=== PATIENT | male | born 1990 | race Caucasian/White ===

== ENCOUNTER 2020-06-10 10:49 | Emergency (ER) | payer SELFPAY ==
[2020-06-10 10:59] VITALS: BP 114/71; PULSE 88; RESP 16; TEMP 36.4; O2SAT 99
--- NOTE | 2020-06-10 11:16 | ED.BACK ---
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 He complains of 2-week history of left low back pain that is mild, worse with motion, better at rest, radiates to neck and posteriorly to the knee . Symptoms began then with heavy lifting; unrelieved with OTC pain med like Motrin nor chiripractor visit. No numbness/weakness, direct injury-he has prior pain in the similar area years ago, with noncontributory plain films. Related Data Allergies Allergy/AdvReac Type Severity Reaction Status Date / Time poison mann extract Allergy Unknown Rash Verified 06/10/20 11:09 poison oak extract Allergy Unknown rash Verified 06/10/20 11:09 poison sumac extract Allergy Unknown rash Verified 06/10/20 11:09 Review of Systems Review of Systems: Narrative: General/Constitutional: No weight loss,fever Eyes: N0: Redness,discharge Ears/Nose/Throat: No: Epistaxis,ear discharge Respiratory: Denies: Hemoptysis Gastrointestinal: No Vomiting, Bleeding-rectal Skin: No Lumps, eruption Neurologic: No Focal Weakness,Sz Hematologic: Denies: Petechiae/Purpura Psychiatric: No: Suicida ideationl All Other Systems: Reviewed and Negative PMFSH Comments At time of signature, agree with nursing past medical, surgical, social and family history. There is no relevant family history pertinent to the presenting complaint Exam Narrative: Exam Narrative: General Appearance: Well appearing, Well nourished/overweight, Conjunctiva clear Ears: External ear normal Nose: Normal nose Mouth/Throat: Normal appearing, Normal lips Neck: Supple Respiratory: Airway patent Abdomen: Soft Musculoskeletal: Normal strength (no footdrop, 5/5 : EH L-FHL, gastroc-AT, no saddle weakness) Spine/Back: Paraspinal muscle tender (with mild decreased range of motion; left posterior superior iliac crest) Skin: Normal color Neurological: A&O x3, CN II-XII intact, Normal reflexes (symmetric, 2+ KJ, AJ) Psychiatric: Normal mood Course Vital Signs Vital signs: Vital Signs Temperature 97.6 F 06/10/20 10:59 Pulse Rate 88 05/03/21 10:59 Respiratory Rate 16 06/10/20 10:59 Blood Pressure 114/71 06/10/20 10:59 Pulse Oximetry 99 06/10/20 10:59 Temperature 97.6 F 06/10/20 10:59 Pulse Rate 88 06/10/20 10:59 Respiratory Rate 16 06/10/20 10:59 Blood Pressure 114/71 06/10/20 10:59 Pulse Oximetry 99 06/10/20 10:59 Discharge Plan Discharge Clinical Impression: Strain of lumbar region Qualifiers: Encounter type: initial encounter Qualified Code(s): S39.012A - Strain of muscle, fascia and tendon of lower back, initial encounter Patient Disposition: Home, Self-Care Condition: Stable Instructions: Lower Back Exercises (ED) Prescriptions: New acetaminophen-codeine 300-30 mg tablet 1 - 2 tablet PO HS PRN (Reason: pain) Qty: 10 RF: 0 prednisone 20 mg tablet 60 mg PO DAILY Qty: 15 RF: 0 tramadol 50 mg tablet 50 - 75 mg PO TID PRN (Reason: pain) Qty: 15 RF: 1 Follow-up/Referrals: UNKNOWN,DOCTOR [Primary Care Provider] - Stand Alone Forms: Work/School Release IP
== END 2020-06-10 11:31 | disposition home or self-care (01) ==
PROVIDERS: Emergency Provider Emergency Medicine
DX: S39.012A Strain of muscle, fascia and tendon of lower back, initial encounter (principal); X50.0XXA Overexertion from strenuous movement or load, initial encounter; Y99.0 Civilian activity done for income or pay
CPT/HCPCS: 99213; G0463

== ENCOUNTER 2022-05-12 16:57 | Emergency (ER) | payer SELFPAY ==
[2022-05-12 17:05] VITALS: BP 133/84; PULSE 78; RESP 18; TEMP 36.7; O2SAT 98
--- NOTE | 2022-05-12 17:12 | PC.NURSE ---
Pt after triage pt states he didn't want to wait and would head over to [facility] to be seen. Pt A&Ox4, resp even non-labored. Pt left at this time, ambulatory with son out of ED.
== END 2022-05-12 17:12 | disposition left against medical advice (07) ==
DX: R22.0 Localized swelling, mass and lump, head (principal)
CPT/HCPCS: 99199

== ENCOUNTER 2022-05-13 21:38 | Emergency (ER) | payer SELFPAY ==
[2022-05-13] VITALS (13 sets, daily range): BP systolic 124–149; BP diastolic 70–90; PULSE 74–105; RESP 16–23; TEMP 37; O2SAT 98–100
--- NOTE | 2022-05-13 22:52 | ED.HA ---
HPI - Headache General Chief Complaint: Headache <KIRSTIE Stewart Last Filed: 05/14/22 19:02> Stated Complaint: ear pain <KIRSTIE Stewart Last Filed: 05/14/22 19:02> Time Seen by Provider: 05/13/22 22:24 <KIRSTIE Stewart Last Filed: 05/14/22 19:02> History of Present Illness HPI Narrative: Patient is a 32-year-old male here via EMS for evaluation of left-sided headache over the past day and a half. Patient states that his headache began while he was on a flight. He describes the pain as a pressure sensation in his left ear and is also present around his left hinduism. He was seen at outside hospital emergency department yesterday and had head imaging that was reportedly reassuring. He states that his headache improved with migraine cocktail but it returned today. States I can't get my ears to pop and equalize . He denies any visual changes, fevers or chills, nausea or vomiting, neck stiffness, trauma to head, confusion or weakness. <KIRSTIE Stewart Last Filed: 05/14/22 19:02> Related Data Allergies/Adverse Reactions: Allergies Allergy/AdvReac Type Severity Reaction Status Date / Time poison mann extract Allergy Unknown Rash Verified 05/13/22 22:28 poison oak extract Allergy Unknown rash Verified 05/13/22 22:28 poison sumac extract Allergy Unknown rash Verified 05/13/22 22:28 <KIRSTIE Stewart Last Filed: 05/14/22 19:02> Review of Systems Review of Systems: Gen.: Denies fevers or chills Eyes: Denies eye pain or visual change ENT: Denies congestion Respiratory: Denies shortness of breath or cough CV: Denies chest pain or palpitations GI: Denies abdominal pain nausea, emesis or diarrhea denies burning, urgency, frequency or hematuria Musculoskeletal: Denies back pain or muscle pain Neuro: Reports headache Skin: Denies rash Except as documented, all other systems reviewed and negative <KIRSTIE Stewart Last Filed: 05/14/22 19:02> Exam Narrative: APPEARANCE: Well appearing, no pain in distress, well-nourished. Head: Normocephalic and atraumatic. EYES: PERRLA/EOMI, conjunctivae clear NOSE: No nasal drainage EARS: TMs clear. No mastoid tenderness. External ear normal in appearance THROAT: Oropharynx is clear. Mucous membranes are moist. NECK: Supple. No adenopathy, no masses. RESPIRATORY: Airway patent, respirations nonlabored. Clear to auscultation bilaterally, no rales, rhonchi, wheezing. CARDIOVASCULAR: Regular rate and rhythm without murmurs, rubs, or gallops. ABDOMINAL: Normoactive bowel sounds. Soft, nontender, nondistended. No rebound tenderness or guarding. MUSCULOSKELETAL: Extremities are warm and well-perfused. Moves all extremities well. No edema. NEURO: Normal speech. No focal neurologic deficits. SKIN: Skin is warm and dry. No rashes. PSYCHIATRIC: Normal affect/mood. <Rissa Gloria PA-C - Last Filed: 05/14/22 19:02> Course FABRICATION MIG WELDER/PA Physician Supervision This is a was performed by both a physician and an APC. I performed all aspects of the MDM as documented w/ the following additions: 32-year-old presenting with headache and ear pain. Patient was given a migraine cocktail which improved all of his symptoms. He was discharged. All questions answered. Patient in agreement w/ disposition. <Juliano Meek MD - Last Filed: 05/14/22 22:11> Vital Signs Vital signs: Vital Signs Temperature 98.6 F 05/13/22 21:42 Pulse Rate 100 05/13/22 21:42 Respiratory Rate 18 05/13/22 21:42 Blood Pressure 135/87 05/13/22 21:42 Pulse Oximetry 100 05/13/22 21:42 Oxygen Delivery Room Air 05/13/22 21:42 Temperature 98.8 F 05/14/22 01:59 Pulse Rate 73 05/14/22 01:30 Respiratory Rate 15 05/14/22 01:30 Blood Pressure 124/70 05/13/22 23:46 Pulse Oximetry 96 05/14/22 01:30 Oxygen Delivery Room Air 05/13/22 21:42 <Rissa Gloria PA-C - Last Filed: 04
[2022-05-13] MEDS: SODIUM CHLORIDE 0.9% IV 1,000 ML 999 ML IV CONT (23:18)
--- NOTE | 2022-05-13 23:23 | PC.NURSE ---
Report given to ALEA Estrada at this time.
[2022-05-13] MEDS: diphenhydrAMINE HCl INJ 50 MG/ML VIAL 25 MG IV PUSH (23:27)
[2022-05-13] MEDS: PROCHLORPERAZINE EDISYLATE 10 MG/2 ML VIAL IV PUSH (23:30)
[2022-05-14] VITALS (7 sets, daily range): PULSE 70–90; RESP 12–18; TEMP 37.1; O2SAT 94–99
[2022-05-14] MEDS: KETOROLAC 15 MG/ML VIAL (*BKC) IV PUSH (00:42)
== END 2022-05-14 01:59 | disposition home or self-care (01) ==
PROVIDERS: Emergency Provider Physician Assistant
DX: G43.909 Migraine, unspecified, not intractable, without status migrainosus (principal); H93.8X2 Other specified disorders of left ear
CPT/HCPCS: 96374; 96375; 99284; J0780; J1100; J1200; J1885; J7030

== ENCOUNTER 2022-05-14 22:53 | Inpatient (IN) | payer SELFPAY ==
--- NOTE | ~2022-05-14 | CT_ITS ---
EXAMINATION: CT facial bones w con DATE: 05/15/2022 04:03 INDICATION: Mastoiditis TECHNIQUE: Computed tomography (CT) of the facial bones and maxillofacial region was performed with 1 00 mL Omnipaque-350 intravenous contrast. Coronal reconstructions were obtained. Automated exposure c ontrol and iterative reconstruction technique were employed. The dose-length product was 615.82 mGy-c m. COMPARISON: None. FINDINGS: There are bilateral mastoid effusions with small amount of fluid extending in the dependent aspect of the bilateral middle ear cavities, left greater than right. No evident osseous dehiscence. Mild muco petar thickening in the right maxillary sinus and right ostiomeatal unit. Remainder of the paranasal si nuses are clear. Changes of bilateral intraocular lens replacement. Orbits are otherwise unremarkable . The maxillofacial soft tissues are unremarkable. Bilateral parotid and submandibular glands are nor mal. No pathologically enlarged lymphadenopathy. Visualized portion of the inferior brain are unremar kable. No abnormally enhancing lesions identified. Tiny nonhemodynamically significant postoperative atherosclerotic plaque along the left internal carotid artery. The visualized cervical vasculature an d cerebral sinuses are otherwise unremarkable. IMPRESSION: 1. Bilateral otomastoiditis effusions without dehiscence. Reviewed, dictated and finalized at location A.
[2022-05-14 22:59] VITALS: BP 118/94; PULSE 105; RESP 20; TEMP 36.4; O2SAT 100
--- NOTE | 2022-05-14 23:29 | PC.NURSE ---
Ice pack and warm blanket given to pt
[2022-05-15] VITALS (15 sets, daily range): BP systolic 129–152; BP diastolic 67–86; PULSE 78–91; RESP 12–18; TEMP 36.3–37.1; O2SAT 94–98; BMI 35.6
[2022-05-15] MEDS: ACETAMINOPHEN 500 MG TABLET 1000 MG PO (00:29)
--- NOTE | 2022-05-15 01:53 | ED.GENADULT ---
HPI - General Adult General Chief complaint: Headache <KIRSTIE Wilkins Last Filed: 05/15/22 03:18> Stated complaint: ear pressure, jaw pain, headache <Sima Willams PA-C - Last Filed: 05/15/22 03:18> Time Seen by Provider: 05/15/22 01:36 <Sima Willams PA-C - Last Filed: 05/15/22 03:18> History of Present Illness HPI narrative: 32-year-old male reports for evaluation of a headache and ear pain for 4 days. Patient states 4 days ago he was on a flight when he developed the headache and ear pain while the flight was descending. States the headache starts at his ears and extends to his temples and into his jaw. Patient reporting photophobia and phonophobia. Reports he was evaluated at [facility] ED 3 days ago, had a head CT that he is reporting was normal, and was treated with a headache cocktail with relief. Pt was seen again at this ED yesterday, was treated with a headache cocktail and reported relief again. States his symptoms came back this morning. He reports taking prednisone, Tylenol and Benadryl at home w/o relief. Denies sore throat, chest pain, nausea, abdominal pain, vomiting, diarrhea, neck pain, fever. <KIRSTIE Wilkins Last Filed: 05/15/22 03:18> Related Data Allergies/adverse reactions: Allergies Allergy/AdvReac Type Severity Reaction Status Date / Time poison mann extract Allergy Unknown Rash Verified 05/13/22 22:28 poison oak extract Allergy Unknown rash Verified 05/13/22 22:28 poison sumac extract Allergy Unknown rash Verified 05/13/22 22:28 <Sima Willams PA-C - Last Filed: 05/15/22 03:18> Review of Systems Review of Systems: CONSTITUTIONAL: Denies fever, chills EYES: Denies visual changes, redness, or discharge. ENT: Denies rhinorrhea, congestion, sore throat, or otalgia. CARDIOVASCULAR: Denies chest pain, palpitations, or edema. RESPIRATORY: Denies cough or dyspnea. GASTROINTESTINAL: Denies abdominal pain, nausea, vomiting, or diarrhea. GENITOURINARY: Denies dysuria or hematuria. SKIN: Denies rash or itching. MUSCULOSKELETAL: Denies back pain, joint pain, or myalgia. NEUROLOGIC: See HPI PSYCHIATRIC: Denies anxiety or depression. <Sima Willams PA-C - Last Filed: 05/15/22 03:18> Exam Narrative: GENERAL: Well-appearing, well-nourished, and in no acute distress. HEAD: Normocephalic, atraumatic. EYES: PERRLA and EOMI. ENT: Nares clear, no rhinorrhea or epistaxis. Mucous membranes moist. Oropharynx without tonsillar hypertrophy exudate or other lesions. Bilateral TMs erythematous and bulging. Tenderness over bilateral mastoid processes. NECK: Supple. No adenopathy or masses. Negative Kernig's and Brudzinski CHEST: Clear to auscultation. No respiratory distress. No wheezes rales or rhonchi HEART: Regular rate and rhythm. No murmur heard. Normal peripheral pulses. ABDOMEN: Soft, nontender, nondistended, normal active bowel sounds. EXTREMITIES: Normal range of motion. No edema. SKIN: Warm, dry, no rash. NEURO: No focal deficits. Alert and oriented x3. Cranial nerves II through XII intact. Strength 5 out of 5 in BUE and BLE. Sensation intact throughout. PSYCH: Normal mood and affect. <Sima Willams PA-C - Last Filed: 05/15/22 03:18> Course SYNTHETIC GEM PRESS OPERATOR/PA Physician Supervision This is a was performed by both a physician and an APC. I performed all aspects of the MDM as documented w/ the following additions: 32-year-old male found him back to the ED with headache and ear pain. Physical exam showed acute otitis media bilaterally. He also has tenderness to palpation over the mastoids. CT was ordered which showed item mastoiditis. Patient was started on dip days ago and admitted the hospital. Care was coordinated between ENT and the hospitalist. All questions answered. Patient in agreement w/ disposition. <Juliano Meek MD - Last Filed: 05/15/22 08:07> Vital Signs Vital signs: Vital Signs Temperature 97.6 F 05/14/22 22:59 Pulse Rate
[2022-05-15] MEDS: SODIUM CHLORIDE 0.9% IV 1,000 ML 999 ML IV CONT (02:15)
[2022-05-15] MEDS: KETOROLAC 30 MG/ML VIAL (*BKC) IV PUSH (02:16)
[2022-05-15] MEDS: diphenhydrAMINE HCl INJ 50 MG/ML VIAL 25 MG IV PUSH (02:16)
[2022-05-15] MEDS: PROCHLORPERAZINE EDISYLATE 10 MG/2 ML VIAL IV PUSH (02:23)
[2022-05-15 03:57] LABS: Basophils Percent Auto 0.2 % (0.2-1.2); Hematocrit 44.8 % (42.0-52.0); Hemoglobin 15.3 g/dL (14.0-18.0); Immature Granulocyte Absolute 0.13 K/mm3 (0.00-0.031); Immature Granulocyte Percent A 0.5 % (0-0.5); Lymphocytes Percent Auto 9.9 % (18.3-44.2); Mean Corpuscular HGB Conc 34.2 g/dl (32-36); Mean Corpuscular Hemoglobin 33.3 pg (26-34); Mean Corpuscular Volume 97.4 fl (80-100); Mean Platelet Volume 10.6 fl (7.4-10.4); Monocytes Absolute Auto 2.5 K/mm3 (0.1-0.6); Monocytes Percent Auto 10.4 % (2.6-8.5); Neutrophils Absolute Auto 19.1 K/mm3 (1.3-6.7); Platelet Count Result 329 k/mm3 (150-375); Red Cell Distribution Width 11.9 % (11.5-14.5); White Blood Count 24.2 K/mm3 (4.5-10.0)
[2022-05-15 04:07] LABS: Alanine Aminotransferase 22 U/L (6-50); Albumin Level 4.7 g/dL (3.5-5.1); Alkaline Phosphatase 70 U/L (38-126); Anion Gap 12 mmol/L (8-16); Aspartate Amino Transferase 17 U/L (17-59); Bilirubin,Total 0.9 mg/dL (0.2-1.3); Blood Urea Nitrogen 13 mg/dL (9-20); Calcium 9.4 mg/dL (8.4-10.2); Carbon Dioxide 28 mmol/L (22-30); Chloride 102 mmol/L (98-107); Estimated CRCL calculation 144 ml/min; Estimated Glomerular Filt Rate > 60; Glucose 104 mg/dL (65-110); Potassium 3.4 mmol/L (3.4-5.0); Sodium 142 mmol/L (137-145)
[2022-05-15] MEDS: AMOXICILLIN/CLAVULANATE K 875-125 MG TAB 1 TABLET PO (06:04)
[2022-05-15] MEDS: SODIUM CHLORIDE 0.9% IV 2,000 ML 999 ML IV CONT (07:52)
--- NOTE | 2022-05-15 08:02 | WPDCN ---
Assessment and Plan Assessment and plan (1) Sore throat: Code(s): J02.9 - Acute pharyngitis, unspecified Status: Acute Assessment and Plan: patient okay for diet no surgery for the time being. Recommend daily CBC/ white count IV antibiotics while in-house. IV Unasyn or clindamycin should suffice IV Zosyn is an option as well should the patient have worsening ear infections. Three doses of Decadron then hold steroids. Should the patient worsen in any way could consider ear tubes in the OR early next week. The white count trans normal would recommend discharge on 10 days of oral antibiotics. Please have the patient see me in the office following discharge. (2) Ear pain: Code(s): H92.09 - Otalgia, unspecified ear Status: Acute HPI Data of Consult Date/Time: 05/15/22 08:02 Primary Care Provider: UNKNOWN,DOCTOR Consult Narrative Reason for consult: Sore throat ear infection Narrative: Yandel Ca is a 32 year old male 3 days of ear pain throat pain. ENT consult secondary to CT scan showing possible mastoiditis. CT bursa reviewed red does not have classic clinical mastoiditis nor radiographic findings of mastoiditis sorry otolaryngologic findings of mastoiditis air cells are intact the entire mastoids are not full. Middle ears are actually aerated on the CT scan. Has radiographic mastoiditis. Review of Systems Review of Systems: All systems reviewed & are unremarkable except as noted in HPI and below Meds Home Medications and Allergies Home Medications Medication Instructions Recorded Confirmed Type acetaminophen 300 mg-codeine 30 mg 1 - 2 tablet PO HS PRN pain #10 06/10/20 Rx tablet tabs prednisone 20 mg tablet 60 mg PO DAILY #15 tabs 06/10/20 Rx tramadol 50 mg tablet 50 - 75 mg PO TID PRN pain #15 tabs 06/10/20 Rx prednisone 20 mg tablet 20 mg PO DAILY #5 tabs 05/14/22 Rx Allergies Allergy/AdvReac Type Severity Reaction Status Date / Time poison mann extract Allergy Unknown Rash Verified 05/13/22 22:28 poison oak extract Allergy Unknown rash Verified 05/13/22 22:28 poison sumac extract Allergy Unknown rash Verified 05/13/22 22:28 Vital Signs Vital Signs - 24 hr 05/14/22 22:59 Temperature 36.4 C Pulse Rate 105 H Respiratory Rate 20 Blood Pressure 118/94 H Pulse Oximetry 100 Oxygen Delivery Room Air Exam Narrative: Mild pain to palpation of or holes and postauricular region large tonsils scant exudate of material on them remainder of exam is Results Labs 05/15/22 02:12 05/15/22 02:12 Labs: Short CBC 05/15/22 Range/Units 02:12 WBC 24.2 H (4.5-10.0) K/mm3 Hgb 15.3 (14.0-18.0) g/dL Hct 44.8 (42.0-52.0) % Plt Count 329 (150-375) k/mm3 BMP 05/15/22 02:12 Sodium 142 Potassium 3.4 Chloride 102 Carbon Dioxide 28 BUN 13 Creatinine 0.90 Glucose 104 Calcium 9.4 Liver Function 05/15/22 Range/Units 02:12 Total Bilirubin 0.9 (0.2-1.3) mg/dL AST 17 (17-59) U/L ALT 22 (6-50) U/L Alkaline Phosphatase 70 (38-126) U/L Albumin 4.7 (3.5-5.1) g/dL
[2022-05-15] MEDS: PIPERACILLN/TAZ 3.375GM/NS50ML 3.375 GM/50 ML BAG IVPB ×4 (08:07→23:48)
[2022-05-15] MEDS: ONDANSETRON INJ 4 MG/2 ML VIAL IV PUSH (10:22)
[2022-05-15] MEDS: HYDROmorphone HCL INJ (*CRX) 1 MG/ML SYR 0.5 MG IV PUSH (10:22)
--- NOTE | 2022-05-15 13:00 | PM.IMHP ---
H&P: HPI History of Present Illness Date/Time: 05/15/22 13:00 Chief Complaint: Headache, left ear and jaw pain. Narrative: This is a 32-year-old male who presented to the emergency department early this morning from home for evaluation of a headache and left ear and jaw pain. Patient provides the following history. Four days ago he was on a flight and he developed a diffuse headache and pain in the ears when the plane began to descend. Since that time he has continued to have intermittent headaches and severe ear pain which radiates into the jaw. He also endorses photophobia and phonophobia. He was evaluated for these complaints in the emergency department at [facility] 3 days ago and he reports having a brain CT that time which was normal. He was given a migraine cocktail of sort with relief and he was discharged home. His symptoms returned he was seen in [place] ED on the evening of May 13 at which time he was treated symptomatically with improvement. Symptoms returned this morning. He denies fever, chills, sweats, sinus congestion, sore throat, neck pain, shortness a breath, cough, nausea, vomiting, and diarrhea. He was afebrile on arrival to the emergency department. CBC was significant for white blood cell count of 24.2; CMP was unremarkable. Facial CT showed bilateral or mastoid effusions without dehiscence. He was given a dose of Unasyn and dexamethasone 10 mg and he has been admitted to the floor for further treatment in the ENT evaluation. Review of Systems Review of Systems: Twelve systems were reviewed and are negative except for as per HPI. [facility] Past Medical History Medical History (Updated 05/18/22 @ 00:40 by Dinorah Pinzon PA-C) No significant medical problems Surgical History Surgical History (Updated 05/18/22 @ 00:40 by Dinorah Pinzon PA-C) No history of previous surgery Family History Family History (Updated 05/18/22 @ 00:40 by Dinorah Pinzon PA-C) Other Family history non-contributory Social History Social History Social History: Surrogate medical decision maker: Sol Ca, mother. Code status: Full code. Smoking status: Never smoker Alcohol intake: never Substance use: never Substance use type: does not use Lack of Transportation: No Lack of Food: Never True Current Housing: I Have Housing Concerned About Future Housing: No Difficulty Paying Gas/Electric Bills: No Difficulty Paying for Meds: No Currently Unemployed: No Education: High School Diploma/GED Difficulty w/ Childcare or Family Care: No Additional living arrangements comments: Lives in [place]. Spiritual care concerns: No Meds Home Medications and Allergies Home Medications Medication Instructions Recorded Confirmed Type acetaminophen 300 mg-codeine 30 mg 1 - 2 tablet PO HS PRN pain #10 06/10/20 05/15/22 Rx tablet tabs prednisone 20 mg tablet 60 mg PO DAILY #15 tabs 06/10/20 05/15/22 Rx tramadol 50 mg tablet 50 - 75 mg PO TID PRN pain #15 tabs 06/10/20 05/15/22 Rx prednisone 20 mg tablet 20 mg PO DAILY #5 tabs 05/14/22 05/15/22 Rx Allergies Allergy/AdvReac Type Severity Reaction Status Date / Time poison mann extract Allergy Unknown Rash Verified 05/13/22 22:28 poison oak extract Allergy Unknown rash Verified 05/13/22 22:28 poison sumac extract Allergy Unknown rash Verified 05/13/22 22:28 Vital Signs Vital Signs - 24 hr 05/14/22 22:59 05/15/22 08:16 05/15/22 08:19 Temperature 97.6 F Pulse Rate 105 H 80 85 Respiratory Rate 20 16 15 Blood Pressure 118/94 H 145/80 H Pulse Oximetry 100 96 98 Oxygen Delivery Room Air 05/15/22 08:30 05/15/22 08:31 05/15/22 08:45 Temperature Pulse Rate 81 82 83 Respiratory Rate 16 18 18 Blood Pressure 137/78 Pulse Oximetry 97 97 95 Oxygen Delivery 05/15/22 08:46 05/15/22 08:47 05/15/22 09:02 Temperature Pulse Rat
--- NOTE | 2022-05-15 13:30 | PC.NURSE ---
Pharmacy called twice regarding pipercillin 3.375 starting at 1130. Med received at 1331--31 minutes after it was due. Order placed at 0940.
[2022-05-15] MEDS: HYDROcodone/acetaminophen (*CRX) 5-325 MG TABLET 1 TAB PO (22:00)
[2022-05-16 05:32] VITALS: BP 126/76; PULSE 67; RESP 14; TEMP 36.4; O2SAT 97
[2022-05-16 06:01] LABS: Hematocrit 41.2 % (42.0-52.0); Hemoglobin 13.9 g/dL (14.0-18.0); Mean Corpuscular HGB Conc 33.7 g/dl (32-36); Mean Corpuscular Hemoglobin 33.1 pg (26-34); Mean Corpuscular Volume 98.1 fl (80-100); Mean Platelet Volume 10.3 fl (7.4-10.4); Platelet Count Result 337 k/mm3 (150-375); Red Cell Distribution Width 11.9 % (11.5-14.5); White Blood Count 23.3 K/mm3 (4.5-10.0)
[2022-05-16 06:23] LABS: Anion Gap 7 mmol/L (8-16); Blood Urea Nitrogen 11 mg/dL (9-20); Calcium 8.8 mg/dL (8.4-10.2); Carbon Dioxide 27 mmol/L (22-30); Chloride 104 mmol/L (98-107); Estimated CRCL calculation 212 ml/min; Estimated Glomerular Filt Rate > 60; Glucose 137 mg/dL (65-110); Magnesium 2.2 mg/dL (1.6-2.3); Potassium 4.2 mmol/L (3.4-5.0); Sodium 138 mmol/L (137-145)
[2022-05-16] MEDS: PIPERACILLN/TAZ 3.375GM/NS50ML 3.375 GM/50 ML BAG IVPB ×3 (06:29→17:09)
[2022-05-16 09:21] LABS: CRP 7.7 mg/dL (<1.0)
[2022-05-16] MEDS: HYDROcodone/acetaminophen (*CRX) 5-325 MG TABLET 1 TAB PO ×2 (11:02→21:03)
--- NOTE | 2022-05-16 11:15 | PM.IMPN ---
Progress Note: A&P Assessment and Plan (1) Mastoiditis: Code(s): H70.90 - Unspecified mastoiditis, unspecified ear Status: Acute Assessment and Plan: presented to the emergency department for evaluation of bilateral ear pain and headache CT of the facial bones shows evidence of otomastoiditis and he has bulging TMs bilaterally continue IV Zosyn ENT consulted thank for your help hold off on the Decadron for now white count still elevated 23.3 continue trend labs (2) Otitis media: Code(s): H66.90 - Otitis media, unspecified, unspecified ear Status: Acute Assessment and Plan: see above Time Spent With Patient Time: 40 minutes Time with patient: Greater than 35 minutes Subjective Date/time seen: 05/16/221114 Interval history: 05/16/221114 Patient is resting in bed comfortably. He still stated that he feels both of his ears are clogged and there is lot of buildup in there. He did state that he was feeling a little better. However he stated this has been the best he has felt over the last couple days. He denies any current chest pain, shortness a breath, nausea, vomiting, diarrhea constipation. His white count is 23.3 today. We will continue to trend. 05/15/22? 13:00 This is a 32-year-old male who presented to the emergency department early this morning from home for evaluation of a headache and left ear and jaw pain. Patient provides the following history. Four days ago he was on a flight and he developed a diffuse headache and pain in the ears when the plane began to descend. Since that time he has continued to have intermittent headaches and severe ear pain which radiates into the jaw.? He also endorses photophobia and phonophobia. He was evaluated for these complaints in the emergency department at [facility] 3 days ago and he reports having a brain CT that time which was normal. He was given a migraine cocktail of sort with relief and he was discharged home. His symptoms returned he was seen in [place] ED on the evening of May 13 at which time he was treated symptomatically with improvement. Symptoms returned this morning. He denies fever, chills, sweats, sinus congestion, sore throat, neck pain, shortness a breath, cough, nausea, vomiting, and diarrhea. He was afebrile on arrival to the emergency department. CBC was significant for white blood cell count of 24.2; CMP was unremarkable. Facial CT showed bilateral or mastoid effusions without dehiscence. He was given a dose of Unasyn and dexamethasone 10 mg and he has been admitted to the floor for further treatment in the ENT evaluation. Review of Systems Review of Systems: All systems reviewed & are unremarkable except as noted in HPI and below Exam Narrative: General: well-nourished, well-appearing 32-year-old male, Laying in bed, comfortable, NARD Neuro: awake, alert and oriented x4, speech clear, no focal neuro deficits noted HEENMT: normocephalic, atraumatic, EOMI, sclerae anicteric, moist oral mucosa Respiratory: Clear to auscultation bilaterally without crackles, rhonchi or wheezes, nonlabored breathing Cardio: regular rate, regular rhythm with S1-S2 Abdomen: nondistended, normoactive bowel sounds, soft, nontender to palpation Extremities: no edema, erythema, or tenderness to palpation, DP pulses 2+ bilaterally Skin: no rashes or lesions, warm and dry Psych: appropriate mood and affect, judgment and insight intact Objective Data Vital Signs Vital Signs: Vital Signs - 24 hr 05/15/22 14:00 05/15/22 21:48 05/16/22 05:32 Temperature 97.3 F L 98.7 F 97.5 F L Pulse Rate 86 78 67 Respiratory Rate 16 16 14 Blood Pressure 129/67 152/76 H 126/76 Pulse Oximetry 97 96 97 Oxygen Delivery 05/16/22 08:00 Temperature Pulse Rate Respiratory Rate Blood Pressure Pulse Oximetry Oxygen Delivery Room Air Intake/Output Intake/Output: Intake & Output
[2022-05-16] MEDS: LORATADINE/PSEUDOEPHEDRINE (*CRX) 10/240 MG TABLET ER 24 HR 1 TAB PO (12:43)
[2022-05-16 14:00] VITALS: BP 132/79; PULSE 95; RESP 16; TEMP 36.6; O2SAT 96
[2022-05-16 16:05] LABS: Strep Group A RT-PCR NOT DETECTED (Negative)
[2022-05-16 21:00] VITALS: PULSE 95; RESP 16; O2SAT 96
[2022-05-16 22:00] VITALS: BP 141/71; PULSE 73; RESP 20; TEMP 36.6; O2SAT 93
[2022-05-17] MEDS: PIPERACILLN/TAZ 3.375GM/NS50ML 3.375 GM/50 ML BAG IVPB ×5 (00:06→23:54)
[2022-05-17 05:42] LABS: Basophils Percent Auto 0.2 % (0.2-1.2); Eosinophils Percent Auto 0.1 % (0-4.4); Hemoglobin 13.5 g/dL (14.0-18.0); Immature Granulocyte Absolute 0.14 K/mm3 (0.00-0.031); Immature Granulocyte Percent A 0.8 % (0-0.5); Lymphocytes Absolute Auto 3.07 K/mm3 (0.9-3.2); Lymphocytes Percent Auto 18.1 % (18.3-44.2); Mean Corpuscular HGB Conc 33.8 g/dl (32-36); Mean Corpuscular Hemoglobin 33.4 pg (26-34); Mean Platelet Volume 9.9 fl (7.4-10.4); Monocytes Absolute Auto 1.3 K/mm3 (0.1-0.6); Monocytes Percent Auto 7.7 % (2.6-8.5); Neutrophils Absolute Auto 12.4 K/mm3 (1.3-6.7); Neutrophils Percent Auto 73.1 % (45.5-73.1); Platelet Count Result 334 k/mm3 (150-375); Red Blood Count 4.04 M/mm3 (4.6-6.20); Red Cell Distribution Width 11.9 % (11.5-14.5)
[2022-05-17 05:53] LABS: Alanine Aminotransferase 42 U/L (6-50); Albumin Level 3.7 g/dL (3.5-5.1); Alkaline Phosphatase 49 U/L (38-126); Anion Gap 7 mmol/L (8-16); Aspartate Amino Transferase 26 U/L (17-59); Bilirubin,Total 0.5 mg/dL (0.2-1.3); Blood Urea Nitrogen 16 mg/dL (9-20); CRP 3.8 mg/dL (<1.0); Calcium 8.8 mg/dL (8.4-10.2); Carbon Dioxide 28 mmol/L (22-30); Chloride 105 mmol/L (98-107); Estimated CRCL calculation 163 ml/min; Estimated Glomerular Filt Rate > 60; Glucose 96 mg/dL (65-110); Magnesium 2.1 mg/dL (1.6-2.3); Potassium 3.9 mmol/L (3.4-5.0); Sodium 140 mmol/L (137-145)
[2022-05-17 06:00] VITALS: BP 108/49; PULSE 95; RESP 20; TEMP 36.6; O2SAT 99
[2022-05-17] MEDS: HYDROcodone/acetaminophen (*CRX) 5-325 MG TABLET 1 TAB PO ×3 (07:17→20:37)
[2022-05-17] MEDS: LORATADINE/PSEUDOEPHEDRINE (*CRX) 10/240 MG TABLET ER 24 HR 1 TAB PO (09:36)
--- NOTE | 2022-05-17 10:00 | PM.IMPN ---
Progress Note: A&P Assessment and Plan (1) Mastoiditis: Code(s): H70.90 - Unspecified mastoiditis, unspecified ear Status: Acute Assessment and Plan: presented to the emergency department for evaluation of bilateral ear pain and headache CT of the facial bones shows evidence of otomastoiditis and he has bulging TMs bilaterally continue IV Zosyn day 2/ ENT consulted thank for your help hold off on the Decadron for now white count trending down, currently at 17.0 continue trend labs (2) Otitis media: Code(s): H66.90 - Otitis media, unspecified, unspecified ear Status: Acute Assessment and Plan: see above Time Spent With Patient Time: 51 minutes Time with patient: Greater than 35 minutes Subjective Date/time seen: 05/17/22 1000 Interval history: 05/17/22 1000 Patient stated that he had a rough night overnight. He stated that his IV infiltrated in the middle the night and since then he has had head pressure, ringing in the ears, headache along with jaw pain. He is also very tired. He denies any chest pain, shortness of breath, weakness or fatigue. He is complaining of some congestion and buildup again. White count is down to 17.0 today. This afternoon, he was complaining of a headache and ringing in the ears. ENT should be in tomorrow will have him reevaluated by ENT. 05/16/22 1115 Patient is resting in bed comfortably. He still stated that he feels both of his ears are clogged and there is lot of buildup in there. He did state that he was feeling a little better. However he stated this has been the best he has felt over the last couple days. He denies any current chest pain, shortness a breath, nausea, vomiting, diarrhea constipation. His white count is 23.3 today. We will continue to trend. 05/15/22? 13:00 This is a 32-year-old male who presented to the emergency department early this morning from home for evaluation of a headache and left ear and jaw pain. Patient provides the following history. Four days ago he was on a flight and he developed a diffuse headache and pain in the ears when the plane began to descend. Since that time he has continued to have intermittent headaches and severe ear pain which radiates into the jaw.? He also endorses photophobia and phonophobia. He was evaluated for these complaints in the emergency department at [facility] 3 days ago and he reports having a brain CT that time which was normal. He was given a migraine cocktail of sort with relief and he was discharged home. His symptoms returned he was seen in [place] ED on the evening of May 13 at which time he was treated symptomatically with improvement. Symptoms returned this morning. He denies fever, chills, sweats, sinus congestion, sore throat, neck pain, shortness a breath, cough, nausea, vomiting, and diarrhea. He was afebrile on arrival to the emergency department. CBC was significant for white blood cell count of 24.2; CMP was unremarkable. Facial CT showed bilateral or mastoid effusions without dehiscence. He was given a dose of Unasyn and dexamethasone 10 mg and he has been admitted to the floor for further treatment in the ENT evaluation. Review of Systems Review of Systems: All systems reviewed & are unremarkable except as noted in HPI and below Exam Narrative: General: well-nourished, ill-appearing 32-year-old male, Laying in bed, uncomfortable, NARD, tired Neuro: awake, alert and oriented x4, speech clear, no focal neuro deficits noted HEENMT: normocephalic, atraumatic, EOMI, sclerae anicteric, moist oral mucosa Respiratory: Clear to auscultation bilaterally without crackles, rhonchi or wheezes, nonlabored breathing Cardio: regular rate, regular rhythm with S1-S2 Abdomen: nondistended, normoactive bowel sounds, soft, nontender to palpation Extremities: no edema, erythema, or tenderness to palpation, DP pulses 2+ bilater
[2022-05-17 14:00] VITALS: BP 128/68; PULSE 65; RESP 16; TEMP 36.2; O2SAT 99
[2022-05-17 20:30] VITALS: PULSE 55; RESP 16; O2SAT 97
[2022-05-17 20:40] VITALS: BP 118/63; PULSE 55; RESP 16; TEMP 36.1; O2SAT 97
[2022-05-18] MEDS: PIPERACILLN/TAZ 3.375GM/NS50ML 3.375 GM/50 ML BAG IVPB ×3 (05:40→18:04)
[2022-05-18 05:41] VITALS: BP 131/71; PULSE 60; RESP 16; TEMP 36.5; O2SAT 97
[2022-05-18] MEDS: HYDROcodone/acetaminophen (*CRX) 5-325 MG TABLET 1 TAB PO ×2 (05:44→20:26)
[2022-05-18 06:47] LABS: Basophils Absolute Auto 0.1 K/mm3 (0.0-0.1); Basophils Percent Auto 0.5 % (0.2-1.2); Eosinophils Absolute Auto 0.1 K/mm3 (0-0.3); Eosinophils Percent Auto 0.7 % (0-4.4); Hematocrit 41.1 % (42.0-52.0); Immature Granulocyte Absolute 0.16 K/mm3 (0.00-0.031); Immature Granulocyte Percent A 1.4 % (0-0.5); Lymphocytes Absolute Auto 3.48 K/mm3 (0.9-3.2); Lymphocytes Percent Auto 29.5 % (18.3-44.2); Mean Corpuscular HGB Conc 34.1 g/dl (32-36); Mean Corpuscular Hemoglobin 32.3 pg (26-34); Mean Corpuscular Volume 94.9 fl (80-100); Mean Platelet Volume 9.5 fl (7.4-10.4); Monocytes Absolute Auto 1.1 K/mm3 (0.1-0.6); Monocytes Percent Auto 9.2 % (2.6-8.5); Neutrophils Absolute Auto 6.9 K/mm3 (1.3-6.7); Neutrophils Percent Auto 58.7 % (45.5-73.1); Platelet Count Result 358 k/mm3 (150-375); Red Blood Count 4.33 M/mm3 (4.6-6.20); Red Cell Distribution Width 11.7 % (11.5-14.5); White Blood Count 11.8 K/mm3 (4.5-10.0)
[2022-05-18 07:05] LABS: Alanine Aminotransferase 75 U/L (6-50); Albumin Level 3.8 g/dL (3.5-5.1); Alkaline Phosphatase 58 U/L (38-126); Anion Gap 8 mmol/L (8-16); Aspartate Amino Transferase 37 U/L (17-59); Bilirubin,Total 0.8 mg/dL (0.2-1.3); Blood Urea Nitrogen 12 mg/dL (9-20); Calcium 8.8 mg/dL (8.4-10.2); Carbon Dioxide 28 mmol/L (22-30); Chloride 101 mmol/L (98-107); Estimated CRCL calculation 184 ml/min; Estimated Glomerular Filt Rate > 60; Glucose 86 mg/dL (65-110); Magnesium 2.2 mg/dL (1.6-2.3); Potassium 3.6 mmol/L (3.4-5.0); Sodium 137 mmol/L (137-145)
[2022-05-18] MEDS: LORATADINE/PSEUDOEPHEDRINE (*CRX) 10/240 MG TABLET ER 24 HR 1 TAB PO (08:58)
--- NOTE | 2022-05-18 09:00 | PM.IMPN ---
Progress Note: A&P Assessment and Plan (1) Mastoiditis: Code(s): H70.90 - Unspecified mastoiditis, unspecified ear Status: Acute Assessment and Plan: presented to the emergency department for evaluation of bilateral ear pain and headache CT of the facial bones shows evidence of otomastoiditis and he has bulging TMs bilaterally continue IV Zosyn day 3/ ENT consulted thank for your help hold off on the Decadron for now white count trending down, currently at 11.8 continue trend labs Consider tube placement Will await further recommendations from ENT Tube placement preformed tomorrow am (2) Otitis media: Code(s): H66.90 - Otitis media, unspecified, unspecified ear Status: Acute Assessment and Plan: see above Time Spent With Patient Time: 48 minutes Time with patient: Greater than 35 minutes Subjective Date/time seen: 05/18/22 09 Interval history: 05/18/22 09 Patient is very sleepy. Patient stated that he does had a rough night again. He stated that the ringing of the ears is worse than yesterday and that he is not able to really hear much out of them. He denies any headache or jaw pain however he stated that he just feels very congested. He denies any chest pain, shortness a breath, nausea, vomiting or diarrhea constipation. White count is better today at 11.8. Spoke with ENT about findings of today. ENT will come in to re-evaluate patient and possibly consider tube placement. 05/17/22 1000 Patient stated that he had a rough night overnight. He stated that his IV infiltrated in the middle the night and since then he has had head pressure, ringing in the ears, headache along with jaw pain. He is also very tired. He denies any chest pain, shortness of breath, weakness or fatigue. He is complaining of some congestion and buildup again. White count is down to 17.0 today. This afternoon, he was complaining of a headache and ringing in the ears. ENT should be in tomorrow will have him reevaluated by ENT. 05/16/22 1115 Patient is resting in bed comfortably. He still stated that he feels both of his ears are clogged and there is lot of buildup in there. He did state that he was feeling a little better. However he stated this has been the best he has felt over the last couple days. He denies any current chest pain, shortness a breath, nausea, vomiting, diarrhea constipation. His white count is 23.3 today. We will continue to trend. 05/15/22? 13:00 This is a 32-year-old male who presented to the emergency department early this morning from home for evaluation of a headache and left ear and jaw pain. Patient provides the following history. Four days ago he was on a flight and he developed a diffuse headache and pain in the ears when the plane began to descend. Since that time he has continued to have intermittent headaches and severe ear pain which radiates into the jaw.? He also endorses photophobia and phonophobia. He was evaluated for these complaints in the emergency department at [facility] 3 days ago and he reports having a brain CT that time which was normal. He was given a migraine cocktail of sort with relief and he was discharged home. His symptoms returned he was seen in [place] ED on the evening of May 13 at which time he was treated symptomatically with improvement. Symptoms returned this morning. He denies fever, chills, sweats, sinus congestion, sore throat, neck pain, shortness a breath, cough, nausea, vomiting, and diarrhea. He was afebrile on arrival to the emergency department. CBC was significant for white blood cell count of 24.2; CMP was unremarkable. Facial CT showed bilateral or mastoid effusions without dehiscence. He was given a dose of Unasyn and dexamethasone 10 mg and he has been admitted to the floor for further treatment in the ENT evaluation. Review of Systems Review of Systems:
[2022-05-18 13:54] VITALS: BP 123/66; PULSE 75; RESP 16; TEMP 36.4; O2SAT 97
--- NOTE | 2022-05-18 14:50 | PM.PNGS ---
Progress Note: A&P Assessment and Plan (1) Otitis media: Code(s): H66.90 - Otitis media, unspecified, unspecified ear Status: Acute Assessment and Plan: Plan operating room bilateral myringotomy tube insertion please make NPO midnight. Risks were discussed including bleeding infection need for further procedures cholesteatoma formation persistent perforation facial nerve paralysis failure to resolve symptoms. Need for tube removal and patch which could being extra procedure. Patient voiced understanding and agreed. This will happen Wednesday. Subjective Subjective Date/Time Seen: 05/18/22 14:50 Interval history: Persistent bilateral ear fullness pain previously had purulence on the left this was several days ago otherwise feeling okay from a general malaise/ illness standpoint. Review of Systems Review of Systems: All systems reviewed & are unremarkable except as noted in HPI and below Exam Narrative: Right side has scant serous effusion left side has bulging purulence. Remainder of exam normal. Objective Data Vital Signs Vital Signs: Vital Signs - 24 hr 05/17/22 20:40 05/17/22 20:30 05/18/22 05:41 Temperature 36.1 C L 36.5 C Pulse Rate 55 L 55 L 60 Respiratory Rate 16 16 16 Blood Pressure 118/63 131/71 Pulse Oximetry 97 97 97 Oxygen Delivery Room Air 05/18/22 08:00 05/18/22 13:54 Temperature 36.4 C Pulse Rate 75 Respiratory Rate 16 Blood Pressure 123/66 Pulse Oximetry 97 Oxygen Delivery Room Air Intake/Output Intake/Output: Intake & Output 05/15/22 05/16/22 05/17/22 05/18/22 23:59 23:59 23:59 23:59 Intake Total 1630 2230 2290 1100 Balance 1630 2230 2290 1100 Meds/Results Medications: Active Medications Generic Name Dose Route Start Last Admin Trade Name Freq PRN Reason Stop Dose Admin Acetaminophen 650 mg 05/15/22 13:42 Acetaminophen 325 Mg Tablet PO Q6H PRN Mild Pain (1-3) or Fever Hydrocodone Bitart/Acetaminophen 1 tab 05/15/22 08:07 05/18/22 05:44 Hydrocodone/Acetaminophen (*Crx) 5-325 Mg Tablet PO 1 tab Q4H PRN Administration Pain Rated 4-6 Hydromorphone HCl 0.5 mg 05/15/22 08:07 05/15/22 10:22 Hydromorphone Hcl Inj (*Crx) 1 Mg/Ml Syr IV PUSH 0.5 mg Q4H PRN Administration Pain Rated 7-10 Piperacillin/Tazobactam/Dextrose 3.375 gm in 50 mls @ 100 mls/hr 05/15/22 13:00 05/18/22 13:23 Zosyn 3.375 Gm/Ns 50 Ml IVPB 100 mls/hr Q6HR SUPA Administration Loratadine/Pseudoephedrine Sulfate 1 tab 05/16/22 11:25 05/18/22 08:58 Loratadine/Pseudoephedrine (*Crx) 10/240 Mg Tablet Er 24 Hr PO 1 tab QAM SUPA Administration Ondansetron HCl 4 mg 05/15/22 08:07 05/15/22 10:22 Ondansetron Inj 4 Mg/2 Ml Vial IV PUSH 4 mg Q4H PRN Administration Nausea Promethazine HCl 12.5 mg 05/15/22 08:07 Promethazine Hcl 25 Mg/Ml Ampul IV PUSH Q6H PRN Nausea Radiology Results: ITS Impressions Face CT 05/15/22 06:10 IMPRESSION: 1. Bilateral otomastoiditis effusions without dehiscence. Labs Labs: Laboratory Results - last 24 hr 05/18/22 05/18/22 06:24 06:24 WBC 11.8 H RBC 4.33 L Hgb 14.0 Hct 41.1 L MCV 94.9 MCH 32.3 MCHC 34.1 RDW 11.7 Plt Count 358 MPV 9.5 Immature Gran % (Auto) 1.4 H Neut % (Auto) 58.7 Lymph % (Auto) 29.5 [place] % (Auto) 9.2 H Eos % (Auto) 0.7 Baso % (Auto) 0.5 Lymph # (Auto) 3.48 H [place] # (Auto) 1.1 H Eos # (Auto) 0.1 Baso # (Auto) 0.1 Abs Immat Gran (auto) 0.16 H Absolute Neuts (auto) 6.9 H Absolute Nucleated RBC 0.0 Nucleated RBC % 0.0 Sodium 137 Potassium 3.6 Chloride 101 Carbon Dioxide 28 Anion Gap 8 BUN 12 Creatinine 0.70 Estim Creat Clear Calc 184 Estimated GFR > 60 Glucose 86 Calcium 8.8 Magnesium 2.2 Total Bilirubin 0.8 AST 37 ALT 75 H Alkaline Phosphatase 58 Total Protein 7.0 Albumin 3.8
--- NOTE | 2022-05-18 15:16 | PM.IMHP ---
H&P: HPI History of Present Illness Date/Time: 05/18/22 15:16 Chief Complaint: Acute otitis media [facility] Past Medical History Medical History (Updated 05/18/22 @ 00:40 by Dinorah Pinzon PA-C) No significant medical problems Surgical History Surgical History (Updated 05/18/22 @ 00:40 by Dinorah Pinzon PA-C) No history of previous surgery Family History Family History (Updated 05/18/22 @ 00:40 by Dinorah Pinzon PA-C) Other Family history non-contributory Social History Social History Social History: Surrogate medical decision maker: Sol Ca, mother. Code status: Full code. Smoking status: Never smoker Alcohol intake: never Substance use: never Substance use type: does not use Lack of Transportation: No Lack of Food: Never True Current Housing: I Have Housing Concerned About Future Housing: No Difficulty Paying Gas/Electric Bills: No Difficulty Paying for Meds: No Currently Unemployed: No Education: High School Diploma/GED Difficulty w/ Childcare or Family Care: No Additional living arrangements comments: Lives in [place]. Spiritual care concerns: No Meds Home Medications and Allergies Home Medications Medication Instructions Recorded Confirmed Type acetaminophen 300 mg-codeine 30 mg 1 - 2 tablet PO HS PRN pain #10 06/10/20 05/15/22 Rx tablet tabs prednisone 20 mg tablet 60 mg PO DAILY #15 tabs 06/10/20 05/15/22 Rx tramadol 50 mg tablet 50 - 75 mg PO TID PRN pain #15 tabs 06/10/20 05/15/22 Rx prednisone 20 mg tablet 20 mg PO DAILY #5 tabs 05/14/22 05/15/22 Rx Allergies Allergy/AdvReac Type Severity Reaction Status Date / Time poison mann extract Allergy Unknown Rash Verified 05/13/22 22:28 poison oak extract Allergy Unknown rash Verified 05/13/22 22:28 poison sumac extract Allergy Unknown rash Verified 05/13/22 22:28 Vital Signs Vital Signs - 24 hr 05/17/22 20:40 05/17/22 20:30 05/18/22 05:41 Temperature 36.1 C L 36.5 C Pulse Rate 55 L 55 L 60 Respiratory Rate 16 16 16 Blood Pressure 118/63 131/71 Pulse Oximetry 97 97 97 Oxygen Delivery Room Air 05/18/22 08:00 05/18/22 13:54 Temperature 36.4 C Pulse Rate 75 Respiratory Rate 16 Blood Pressure 123/66 Pulse Oximetry 97 Oxygen Delivery Room Air Exam Narrative: Fluid right-sided pus left-sided H&P: Results Labs Labs: Short CBC 05/18/22 Range/Units 06:24 WBC 11.8 H (4.5-10.0) K/mm3 Hgb 14.0 (14.0-18.0) g/dL Hct 41.1 L (42.0-52.0) % Plt Count 358 (150-375) k/mm3 BMP 05/18/22 06:24 Sodium 137 Potassium 3.6 Chloride 101 Carbon Dioxide 28 BUN 12 Creatinine 0.70 Glucose 86 Calcium 8.8 Liver Function 05/18/22 Range/Units 06:24 Total Bilirubin 0.8 (0.2-1.3) mg/dL AST 37 (17-59) U/L ALT 75 H (6-50) U/L Alkaline Phosphatase 58 (38-126) U/L Albumin 3.8 (3.5-5.1) g/dL Assessment and Plan Assessment and plan (1) Otitis media: Code(s): H66.90 - Otitis media, unspecified, unspecified ear Status: Acute Assessment and Plan: plan OR bilateral myringotomy tube insertion we used collar buttons. Risks discussed including bleeding infection need for further procedures cholesteatoma persistent perforation facial nerve paralysis failure to resolve symptoms need for follow-up need to remove the tubes and patch 1 day. Patient voiced understanding and agreed. (2) Acute otitis media, bilateral: Code(s): H66.93 - Otitis media, unspecified, bilateral Status: Acute
[2022-05-18 20:00] VITALS: PULSE 75; RESP 16; O2SAT 97
[2022-05-18 22:00] VITALS: BP 155/67; PULSE 67; RESP 16; TEMP 36.6; O2SAT 98
[2022-05-19] VITALS (9 sets, daily range): BP systolic 110–132; BP diastolic 60–77; PULSE 62–78; RESP 10–16; TEMP 36.2–36.9; O2SAT 93–98
[2022-05-19] MEDS: PIPERACILLN/TAZ 3.375GM/NS50ML 3.375 GM/50 ML BAG IVPB ×3 (01:37→12:31)
[2022-05-19] MEDS: LACTATED RINGERS 1,000 ML 30 ML IV CONT (07:10)
--- NOTE | 2022-05-19 07:19 | WPDHPUPDATE1 ---
History and Physical Update Update Date/Time: 05/19/22 07:19 History and Physical has been reviewed, including an updated exam of the patient. There are NO changes in the patient's condition. Risks, benefits, and alternatives have been discussed and questions answered. Patient agrees to proceed with procedure.
--- NOTE | 2022-05-19 07:27 | WPDANESEPPF ---
Anes - Initial Pre Proc Eval Procedure: Operation Date: 05/19/22 08:00 Proposed Procedures p Bilateral Myringotomy,Insertion Of Tubes - Jonas Leon MD Date/Time: 05/19/22 07:27 Surgeon: Ester Jones MD Pre Op Diagnosis: Otomastoiditis Patient Data Age: 32 Gender: M Height: 1.88 m Weight: 121 kg Last Vital Signs Temp 36.7 C 05/19/22 07:10 Pulse 78 05/19/22 07:10 Resp 16 05/19/22 07:10 BP 116/60 05/19/22 07:10 Pulse Ox 95 05/19/22 07:10 O2 Del Method Room Air 05/19/22 07:10 Allergies Allergy/AdvReac Type Severity Reaction Status Date / Time poison mann extract Allergy Unknown Rash Verified 05/13/22 22:28 poison oak extract Allergy Unknown rash Verified 05/13/22 22:28 poison sumac extract Allergy Unknown rash Verified 05/13/22 22:28 Home Medications Medication Instructions Recorded Confirmed Type acetaminophen 300 mg-codeine 30 mg 1 - 2 tablet PO HS PRN pain #10 06/10/20 05/15/22 Rx tablet tabs prednisone 20 mg tablet 60 mg PO DAILY #15 tabs 06/10/20 05/15/22 Rx tramadol 50 mg tablet 50 - 75 mg PO TID PRN pain #15 tabs 06/10/20 05/15/22 Rx prednisone 20 mg tablet 20 mg PO DAILY #5 tabs 05/14/22 05/15/22 Rx Patient hx anesthesia problems: none Family hx anesthesia problems: none Results Review: All pre-operative results and documents have been reviewed as part of the pre-operative evaluation. [facility] Past Medical History Medical History (Updated 05/18/22 @ 00:40 by Dinorah Pinzon PA-C) No significant medical problems Surgical History Surgical History (Updated 05/18/22 @ 00:40 by Dinroah Pinzon PA-C) No history of previous surgery Family History Family History (Updated 05/18/22 @ 00:40 by Dinorah Pinzon PA-C) Other Family history non-contributory Social History Social History Social History: Surrogate medical decision maker: Sol Ca, mother. Code status: Full code. Smoking status: Never smoker Alcohol intake: never Substance use: never Substance use type: does not use Lack of Transportation: No Lack of Food: Never True Current Housing: I Have Housing Concerned About Future Housing: No Difficulty Paying Gas/Electric Bills: No Difficulty Paying for Meds: No Currently Unemployed: No Education: High School Diploma/GED Difficulty w/ Childcare or Family Care: No Additional living arrangements comments: Lives in [place]. Spiritual care concerns: No Anes - Eval Final PreProcedure Day of Procedure 05/19/22 07:27 Patient weight: obese Heart: regular rate and rhythm Lungs: clear to auscultation Airway: Mallampati scale class II Neurological: alert and oriented Last oral intake: >/= 8 hours ASA classification: II Emergent: no Anesthetic plan: proceed Anesthesia type and monitoring: general GIVS and standard monitoring Results Review: All pre-operative results and documents have been reviewed as part of the pre-operative evaluation. Informed Consent: The patient's anesthetic plan and its attendant risks and benefits were discussed with the patient/family/POA. Questions were solicited and answers provided to the satisfaction of the patient/family/POA.
[2022-05-19] MEDS: CIPROFLOXACIN HCL 0.3% OP SOLN 2.5 ML BTL 4 DROP EACH EAR (08:17)
--- NOTE | 2022-05-19 08:33 | W.PM.PROC2 ---
Procedure Note - Detailed Date of Procedure 05/19/22 Pre-op Diagnosis Otomastoiditis Post-op Diagnosis Same Procedure Performed Bilateral myringotomy tube insertion Surgeon Jonas Leon MD Anesthesia General ( LMA) Indications see above Findings copious amounts of fluids right middle ear left copious amounts of purulence suctioned rinsed tubes placed drops placed Description of Procedure patient identified consent verified. Patient brought operating room. Time-out performed. General anesthesia induced LMA secured. Patient prepped draped position procedure confirmed 2nd time-out performed. Ulysses microscope brought into the field right-sided viewed myringotomy made copious amounts of serous fluid suctioned out tube placed successfully drops placed minimal bleeding. Left-sided exact same procedure performed copious amounts purulence encountered suctioned out drops placed tube in good position middle months of bleeding total but 1 cc. Patient tolerated procedure well no complications. Care the patient Anesthesiology. I performed dictated portions procedure. Patient taken to PACU. Estimated Blood Loss 1 Urine Output 0 Drains No Packing No Pathology None sent Complications No immediate complications Condition Stable Disposition PACU [facility] Billing Surgery - Charge Forward: Surgery Billing
--- NOTE | 2022-05-19 12:00 | PM.DS ---
DS: Admitting Diagnosis Discharge Date 05/19/22 1200 Admitting Diagnosis Mastoiditis, otitis media, sore throat DS: Discharge Diagnosis Discharge Diagnosis (1) Mastoiditis: Code(s): H70.90 - Unspecified mastoiditis, unspecified ear Status: Acute Assessment and Plan: presented to the emergency department for evaluation of bilateral ear pain and headache ?CT of the facial bones shows evidence of otomastoiditis and he has bulging TMs bilaterally ?continue IV Zosyn day 05/13, will discharge on Augmentin for completion of a 10 day course ?ENT consulted thank for your help ?hold off on the Decadron for now ?white count trending down, 11.8 on 05/18/22 ?continue trend labs ?Consider tube placement ?Will await further recommendations from ENT ?Tube placement preformed on 05/19/22 (2) Otitis media: Code(s): H66.90 - Otitis media, unspecified, unspecified ear Status: Acute Assessment and Plan: see above DS: Summary Hospital Course Hospital Course: Patient is a 32 year old male with no significant past medical history who has presented multiple time to the ED with headache, ear, and jaw pain. Head CT was finally performed and found Bilateral mastoid effusions dehiscence. Patient initially started use and has been switched to Zosyn. ENT was consulted and changed antibiotics to Zosyn. Steroids were initially given in the ED. however steroids were stopped. WBCs have been on trend last reported value of 11.8. initially upon arrival patient's white count was 24,000. CRP was also elevated at 7.7, and is current 3.8. Patient had also complained of congestion and was given Claritin D for supportive care. Patient continued to have further discomfort in his ears and then started to have continuous ringing in his ears that was causing him not to be able to hear. ENT was re-contacted and it was determined that the patient would need tube placement. Tube placement was performed on 05/19/2022. Labs and vital signs are stable at this time. Currently patient is stable for discharge, and will follow up with Dr. Leon in 2 weeks. Status at Discharge Functional status at discharge: independent ambulation Overall status at discharge: patient is progressing back to baseline Time Spent with Patient Time attestation: Total time spent providing and/or coordinating discharge services: 48 minutes Time spent: Greater than 30 minutes Specific discharge activities: Diagnostic testing, chart review, developing a treatment plan, education, care coordination documentation, physical exam, result review Exam Narrative: General: well-nourished, well-appearing 32-year-old male, Laying in bed, comfortable, NARD Neuro: awake, alert and oriented x4, speech clear, no focal neuro deficits noted HEENMT: normocephalic, atraumatic, EOMI, sclerae anicteric, moist oral mucosa Respiratory: Clear to auscultation bilaterally without crackles, rhonchi or wheezes, nonlabored breathing Cardio: regular rate, regular rhythm with S1-S2 Abdomen: nondistended, normoactive bowel sounds, soft, nontender to palpation Extremities: no edema, erythema, or tenderness to palpation, DP pulses 2+ bilaterally Skin: no rashes or lesions, warm and dry Psych: appropriate mood and affect, judgment and insight intact DS: Data Data Completed and Pending Labs on day of discharge: Labs from last 24 hours 05/17/22 05/17/22 05/16/22 05:07 05:07 15:27 WBC 17.0 H RBC 4.04 L Hgb 13.5 L Hct 40.0 L MCV 99.0 MCH 33.4 MCHC 33.8 RDW 11.9 Plt Count 334 MPV 9.9 Immature Gran % (Auto) 0.8 H Neut % (Auto) 73.1 Lymph % (Auto) 18.1 L [place] % (Auto) 7.7 Eos % (Auto) 0.1 Baso % (Auto) 0.2 Lymph # (Auto) 3.07 [place] # (Auto) 1.3 H Eos # (Auto) 0.0 Baso # (Auto) 0.0 Abs Immat Gran (auto) 0.14 H Absolute Neuts (auto) 12.4 H Absolute Nucleated RBC 0.0 Nucleated RBC
--- NOTE | 2022-05-19 14:50 | PC.NURSE ---
Return from OR per stretcher @ [id number].
== END 2022-05-19 16:05 | disposition home or self-care (01) | DRG 113 ==
LOC: ANHED 05-15 07:43 → ANH3MEDSUR 05-15 09:28
PROVIDERS: Otolaryngology; Physician Assistant; Admitting Provider Family Medicine; Emergency Provider Physician Assistant; Visit Provider Nurse Practitioner
PROC: 099670Z Drainage of Left Middle Ear with Drainage Device, Via Natural or Artificial Opening (ICD-10-PCS; principal; 2022-05-19 08:00)
DX: H70.003 Acute mastoiditis without complications, bilateral (principal); H66.93 Otitis media, unspecified, bilateral; Z79.52 Long term (current) use of systemic steroids; Z79.890 Hormone replacement therapy; Z79.899 Other long term (current) drug therapy
CPT/HCPCS: 36415; 70487; 80048; 80053; 83735; 85025; 85027; 86140; 87651; 96361; 96365; 96375; 99285; A9270; J0780; J1100; J1170; J1200; J1885; J2250; J2405; J2543; J2704; J3010; J7030; J7120; Q9967

== ENCOUNTER 2023-06-14 10:07 | Emergency (ER) | payer OTHER, SELFPAY ==
--- NOTE | ~2023-06-14 | CT_ITS ---
EXAMINATION: CT knee RT wo con DATE: 06/14/2023 11:48 INDICATION: Right knee swelling post injury TECHNIQUE: High resolution computed tomography (CT) of the right knee was performed without intraveno us contrast. Additional sagittal and coronal reconstructions were performed. Automated exposure contr ol and iterative reconstruction technique were employed. The dose-length product was 454.46 mGy-cm. COMPARISON: None FINDINGS: Bone alignment is normal. No fracture. Joint spaces appear normal on nonweightbearing imaging. Small sclerotic bone lesion at the medial tibial plateau and along the medial femoral condyle. No joint eff usion. Soft tissue swelling with subcutaneous edema anterior to the patella and patellar tendon most likely posttraumatic soft tissue contusion given the history of trauma with differential including pr epatellar bursitis. There are a few small heterotopic ossicles in the subcutaneous tissues about the knee. IMPRESSION: 1. No left knee joint effusion or acute osseous abnormality. Reviewed, dictated and finalized at location A.
--- NOTE | ~2023-06-14 | XR_ITS ---
EXAMINATION: XR knee RT 3V DATE: 06/14/2023 10:23 INDICATION: Right knee injury and pain. TECHNIQUE: 3 views of right knee were obtained. COMPARISON: None. FINDINGS: Bone alignment is normal. No fracture. There is mild osteoarthritis of medial and lateral c ompartments. No knee joint effusion. IMPRESSION: 1. Mild right knee osteoarthritis. Reviewed, dictated and finalized at location A.
[2023-06-14 10:08] VITALS: BP 139/85; PULSE 69; RESP 14; TEMP 36.4; O2SAT 99
--- NOTE | 2023-06-14 11:23 | ED.LOWEXIN ---
HPI - Extremity Injury (Lower) General Chief Complaint: Extremity Injury, Lower Stated Complaint: leg injury Time Seen by Provider: 06/14/23 10:12 Source: patient Mode of arrival: ambulatory Limitations: no limitations History of Present Illness HPI Narrative: Yandel is a 33-year-old male patient presenting to the ER today with complaints right knee injury. He reports he was playing kickball yesterday and running around the bases and the ground was muddy and his left leg slipped out and he planted his right knee and which this tweaked his knee on the medial aspect of the knee. Is complaining of pain to the anterior and medial knee. Is unable to fully bend or extend his right knee due to pain. Pain is worse with ambulation Related Data Allergies Allergy/AdvReac Type Severity Reaction Status Date / Time poison mann extract Allergy Unknown Rash Verified 06/14/23 10:10 poison oak extract Allergy Unknown rash Verified 06/14/23 10:10 poison sumac extract Allergy Unknown rash Verified 06/14/23 10:10 Review of Systems Review of Systems: Pertinent positives per HPI. Patient denies any fever, chills, rash, headache, visual changes, dizziness, cough, runny nose, sore throat, shortness of breath, chest pain, palpitations, nausea, vomiting, diarrhea, constipation, abdominal pain, or any urinary issues. COUNTS INCLUDE 234 BEDS AT THE [facility] Past Medical History Medical History No significant medical problems Surgical History Surgical History No history of previous surgery Family History Family History Other Family history non-contributory Social History Social History Social History: Surrogate medical decision maker: Sol Ca, mother. Code status: Full code. Smoking status: Never smoker Alcohol intake: never Substance use: never Substance use type: does not use Lack of Transportation: No Lack of Food: Never True Current Housing: I Have Housing Concerned About Future Housing: No Difficulty Paying Gas/Electric Bills: No Difficulty Paying for Meds: No Currently Unemployed: No Education: High School Diploma/GED Difficulty w/ Childcare or Family Care: No Additional living arrangements comments: Lives in [place]. Spiritual care concerns: No Comments At the time of my signature, I reviewed and agree with the nursing past medical, surgical, social, and family history. There is no relevant family history pertinent to the patient complaint. Exam Narrative: General: Well-developed, obese, in no apparent distress Head: Normocephalic, atraumatic. Cardio: Regular rate and rhythm, s1 and s2 normal, no murmur appreciated. Resp: Clear to auscultation bilaterally, no rhonchi, rales, wheezing or rubs. Musculoskeletal: No deformity, swelling noted to the right knee when compared to the left, tender to palpation over the medial, anterior, and posterior right knee, pain with full extension and full flexion of the right knee, no crepitus palpable, muscle strength strong and equal, peripheral pulse strong, no edema, no cyanosis, sitting in a wheelchair Course Course Emergency Course: Portions of this record may have been created with voice recognition software. Vital Signs Vital signs: Vital Signs Temperature 36.4 C 06/14/23 10:08 Pulse Rate 69 06/14/23 10:08 Respiratory Rate 14 06/14/23 10:08 Blood Pressure 139/85 06/14/23 10:08 Pulse Oximetry 99 06/14/23 10:08 Oxygen Delivery Room Air 06/14/23 10:08 Temperature 36.4 C 06/14/23 10:08 Pulse Rate 69 06/14/23 10:08 Respiratory Rate 14 06/14/23 10:08 Blood Pressure 139/85 06/14/23 10:08 Pulse Oximetry 99 06/14/23 10:08 Oxygen Delivery Room Air 06/14/23 10:08 Vital signs reviewed MDM - Ex
== END 2023-06-14 13:09 | disposition home or self-care (01) ==
PROVIDERS: Emergency Provider Nurse Practitioner Family
DX: M25.561 Pain in right knee (principal); S83.411A Sprain of medial collateral ligament of right knee, initial encounter; W01.0XXA Fall on same level from slipping, tripping and stumbling without subsequent striking against object, initial encounter
CPT/HCPCS: 73562; 73700; 99284

== ENCOUNTER 2024-04-13 11:31 | Emergency (ER) | payer SELFPAY ==
[2024-04-13 12:15] VITALS: BP 132/72; PULSE 98; RESP 16; TEMP 36.9; O2SAT 100
[2024-04-13 14:04] LABS: Influenza A QL RT-PCR Positive (Negative); Influenza B QL RT-PCR Negative (Negative); RSV RNA, RT-PCR Negative (Negative); SARS-CoV-2 RNA PCR Negative (Negative)
--- NOTE | 2024-04-13 17:00 | ED.GENADULT ---
HPI - General Adult General Chief complaint: Ear Stated complaint: L ear infection, fever Time Seen by Provider: 04/13/24 15:04 History of Present Illness HPI narrative: 34-year-old male presents emergency department for evaluation for left-sided ear pain for the last 2 weeks. And patient has been having cough congestion body aches and fatigue for the last 2 days. Patient does have a prior history of bilateral otitis media and does have a retained tympanostomy tube and the left ear. Related Data Allergies Allergy/AdvReac Type Severity Reaction Status Date / Time poison mann extract Allergy Unknown Rash Verified 04/13/24 13:10 poison oak extract Allergy Unknown rash Verified 04/13/24 13:10 poison sumac extract Allergy Unknown rash Verified 04/13/24 13:10 Review of Systems Review of Systems: All systems reviewed & are unremarkable except as noted in HPI and below PMFSH Past Medical History Medical History No significant medical problems Surgical History Surgical History No history of previous surgery Family History Family History Other Family history non-contributory Social History Social History Social History: Surrogate medical decision maker: Sol Ca, mother. Code status: Full code. Smoking status: Never smoker Alcohol intake: never Substance use: never Substance use type: does not use Lack of Transportation: No Lack of Food: Never True Current Housing: I Have Housing Concerned About Future Housing: No Difficulty Paying Gas/Electric Bills: No Difficulty Paying for Meds: No Currently Unemployed: No Education: High School Diploma/GED Difficulty w/ Childcare or Family Care: No Additional living arrangements comments: Lives in [place]. Spiritual care concerns: No Exam Narrative: APPEARANCE: Well appearing, no pain, no distress, well-nourished. HEAD: normocephalic, atraumatic. EYES: PERRLA/EOMI, conjunctivae clear. NOSE: Normal no drainage EARS:Left ear effusion THROAT: Pharynx clear, no exudate. NECK: Supple. No adenopathy, no masses. RESPIRATORY: Airway patent, respirations nonlabored. Clear to auscultation bilaterally, no rales, rhonchi, wheezing. CARDIOVASCULAR: Regular rate and rhythm without murmurs rubs or gallops. ABDOMINAL: Soft, nontender, nondistended, normal bowel sounds MUSCULOSKELETAL: Moves all extremities. Strength/ROM intact, No edema, No calf tenderness. NEURO: Alert. Cranial nerves II through XII intact. Good gait. Good coordination SKIN: Warm, dry. Normal Color PSYCHIATRIC: Normal affect/mood. Course Vital Signs Vital signs: Vital Signs Temperature 98.5 F 04/13/24 12:15 Pulse Rate 98 04/13/24 12:15 Respiratory Rate 16 04/13/24 12:15 Blood Pressure 132/72 04/13/24 12:15 Pulse Oximetry 100 04/13/24 12:15 Oxygen Delivery Room Air 04/13/24 12:15 Temperature 98.5 F 04/13/24 12:15 Pulse Rate 98 04/13/24 12:15 Respiratory Rate 16 04/13/24 12:15 Blood Pressure 132/72 04/13/24 12:15 Pulse Oximetry 100 04/13/24 12:15 Oxygen Delivery Room Air 04/13/24 12:15 Medical Decision Making MDM Narrative Medical decision making narrative: 34-year-old male presents emergency department for evaluation for cough cold congestion and left ear pain Differential Diagnosis Differential Diagnosis: COVID, RSV, influenza, otitis media, pneumonia Vital Signs Vital Signs: Vital Signs Temperature 98.5 F 04/13/24 12:15 Pulse Rate 98 04/13/24 12:15 Respiratory Rate 16 04/13/24 12:15 Blood Pressure 132/72 04/13/24 12:15 Pulse Oximetry 100 04/13/24 12:15 Oxygen Delivery Room Air 04/13/24 12:15 Temperature 98.5 F 04/13/24 12:15 Pulse Rate 98 04/13/24 12:15 Respiratory Rate 16 04/13/24 12:15 Blood Pressure 132/72 04/13/24 12:15 Pulse Oximetry 100 04/13/24 12:15 Oxygen Delivery Room Air 04/13/24 12:15 Lab Data Lab results reviewed: Yes I reviewed the patient's lab results. Labs: Lab Results 04/13/24 Range/Units 13:18 Influenza A (RT-PCR) Positive A (Negative) Influenza B (RT-PCR) Negative (Negative) RSV (RT-PCR) Negative (Negative) SARS-CoV-2 RNA (RT-PCR) Negative (Negative) Discharge Plan Discharge Clinical Impression: Influenza A, Otitis media Patient Disposition: Home, Self-Care Condition: Stable Instructions: Antibiotic Form, Influenza (DC), Ear Infection (GEN) Additional Instructions: Antibiotic as directed until completed. Tylenol and ibuprofen for body aches and fatigue. Albuterol inhaler for shortness of breath. Tessalon Perles for cough. Have close follow-up with ENT. Have close follow-up with your primary care physician. If you have any worsening symptoms please call or return to the emergency department. Patient Language: Ukrainian Prescriptions: New benzonatate 100 mg capsule 100 mg PO TID PRN (Reason: cough) Qty: 14 0RF albuterol sulfate 90 mcg/actuation HFA aerosol inhaler 1 puff inhalation QID Qty: 6.7 0RF amoxicillin-pot clavulanate 875-125 mg tablet 1 tablet PO Q12H 7 Days Qty: 14 0RF No Action amoxicillin 875 mg tablet 875 mg PO Q12H Qty: 14 0RF ciprofloxacin-dexamethasone 0.3-0.1 % drops,suspension 5 drp LEFT EAR TID Qty: 7.5 0RF Rx Instructions: Until follow up amoxicillin-pot clavulanate 875-125 mg tablet 1 tablet PO BID Qty: 20 2RF Rx Instructions: take 1 tablet b.i.d. Follow-up/Referrals: UNKNOWN,DOCTOR [Primary Care Provider] -
[2024-04-13] MEDS: BENZONATATE 100 MG CAPSULE PO (17:04)
[2024-04-13] MEDS: AMOXICILLIN/CLAVULANATE K 875-125 MG TAB 1 TABLET PO (17:04)
== END 2024-04-13 17:13 | disposition home or self-care (01) ==
PROVIDERS: Emergency Provider Emergency Medicine
DX: J10.1 Influenza due to other identified influenza virus with other respiratory manifestations (principal); H66.92 Otitis media, unspecified, left ear; Z20.822 Contact with and (suspected) exposure to COVID-19
CPT/HCPCS: 87637; 99283; A9270

== ENCOUNTER 2024-04-25 02:10 | Emergency (ER) | payer SELFPAY ==
--- NOTE | ~2024-04-25 | XR_ITS ---
Clinical Indication: Chest pain PA and lateral views of the chest: Comparison: None Findings: The lungs are clear, without evidence of focal consolidation or pleural effusion. Cardiome diastinal silhouette is within normal limits. Bones and soft tissues are unremarkable. Impression: Normal chest. Reviewed, dictated and finalized at location . Impression: Normal chest.
--- NOTE | ~2024-04-25 | CT_ITS ---
Clinical Indication: Chest pain, shortness of breath CT Scan of the Chest with Contrast: Technique: Contiguous sections were acquired throughout the chest after intravenous administration of 100 cc of Omnipaque 350. Dose reduction technique was used on this scan by utilizing automated expos ure control and iterative reconstruction technique. The dose-length product (DLP) was 986.25 mGy-cm. Findings: Mildly enlarged bilateral hilar lymph nodes are present. No other mediastinal adenopathy or axillary lymphadenopathy seen. There is no filling defect in the pulmonary arterial tree to suggest pulmonary embolus. There is no evidence of aortic dissection or aneurysm. There is no evidence of pleural or pericardial effusion. The lungs are clear. No pulmonary nodules or infiltrates are noted. Images through the upper abdomen reveal no abnormalities. Impression: No evidence of pulmonary embolus, aortic dissection, or aortic aneurysm. Clear lungs. Mild bilateral hilar lymphadenopathy, nonspecific. Consider sarcoid or other inflammatory conditions. Reviewed, dictated and finalized at [facility]. Impression: No evidence of pulmonary embolus, aortic dissection, or aortic aneurysm. Clear lungs. Mild bilateral hilar lymphadenopathy, nonspecific. Consider sarcoid or other in flammatory conditions.
--- NOTE | 2024-04-25 02:13 | ECG_ITS ---
Test Date: 2024-04-25 02:17:54 Measurements Intervals [place] Rate: 74 P: 58 NE: 191 QRS: 76 QRSD: 105 T: 48 QT: 385 QTc: 429 Interpretive Statements SINUS RHYTHM INCOMPLETE RIGHT BUNDLE BRANCH BLOCK No previous ECG available for comparison Electronically Signed On 04-25-2024 16:50:44 CDT by Papa Burciaga M.D.
[2024-04-25 02:27] VITALS: BP 142/78; PULSE 73; RESP 13; TEMP 36.2; O2SAT 98
[2024-04-25 02:34] LABS: Basophils Absolute Auto 0.1 K/mm3 (0.0-0.1); Basophils Percent Auto 0.7 % (0.2-1.2); Eosinophils Absolute Auto 0.2 K/mm3 (0-0.3); Eosinophils Percent Auto 2.6 % (0-4.4); Hematocrit 43.8 % (42.0-52.0); Hemoglobin 15.6 g/dL (14.0-18.0); Immature Granulocyte Absolute 0.04 K/mm3 (0.00-0.031); Immature Granulocyte Percent A 0.5 % (0-0.5); Lymphocytes Absolute Auto 2.95 K/mm3 (0.9-3.2); Lymphocytes Percent Auto 34.2 % (18.3-44.2); Mean Corpuscular HGB Conc 35.6 g/dl (32-36); Mean Corpuscular Hemoglobin 33.5 pg (26-34); Mean Platelet Volume 9.9 fl (7.4-10.4); Monocytes Absolute Auto 0.9 K/mm3 (0.1-0.6); Monocytes Percent Auto 10.8 % (2.6-8.5); Neutrophils Absolute Auto 4.4 K/mm3 (1.3-6.7); Neutrophils Percent Auto 51.2 % (45.5-73.1); Platelet Count Result 270 k/mm3 (150-375); Red Blood Count 4.66 M/mm3 (4.6-6.20); White Blood Count 8.6 K/mm3 (4.5-10.0)
[2024-04-25 02:46] LABS: Alanine Aminotransferase 115 U/L (6-50); Albumin Level 4.7 g/dL (3.5-5.1); Alkaline Phosphatase 62 U/L (38-126); Anion Gap 12 mmol/L (4-12); Aspartate Amino Transferase 59 U/L (17-59); Bilirubin,Total 0.8 mg/dL (0.2-1.3); Blood Urea Nitrogen 19 mg/dL (9-20); Calcium 9.4 mg/dL (8.4-10.2); Carbon Dioxide 24 mmol/L (22-30); Chloride 103 mmol/L (98-107); Estimated CRCL calculation 113 ml/min; Estimated Glomerular Filt Rate > 60; Glucose 97 mg/dL (65-110); Lipase 70 U/L (23-300); Potassium 3.9 mmol/L (3.4-5.0); Sodium 139 mmol/L (137-145)
[2024-04-25 02:48] LABS: Prothrombin Time 13.8 Seconds (11.1-14.7)
[2024-04-25 02:49] LABS: Partial Thromboplastin Time 27.7 Seconds (22.3-36.8)
[2024-04-25 02:58] LABS: Troponin I < 0.012 ng/mL (0.000-0.034)
--- NOTE | 2024-04-25 05:19 | ECG_ITS ---
Test Date: 2024-04-25 05:22:59 Measurements Intervals [place] Rate: 72 P: 53 [place]: 179 QRS: 67 QRSD: 102 T: 54 QT: 402 QTc: 441 Interpretive Statements SINUS RHYTHM INCOMPLETE RIGHT BUNDLE BRANCH BLOCK Compared to ECG 04/25/2024 02:17:54 NO SIGNIFICANT CHANGES Electronically Signed On 04-25-2024 16:52:13 CDT by Papa Burciaga M.D.
[2024-04-25 05:34] VITALS: O2SAT 100
[2024-04-25 05:36] VITALS: BP 102/73; PULSE 65; RESP 15; O2SAT 98
[2024-04-25 05:37] VITALS: PULSE 71
[2024-04-25 06:11] LABS: Troponin I < 0.012 ng/mL (0.000-0.034)
--- NOTE | 2024-04-25 06:31 | ED_ITS ---
HPI - General Adult General Chief complaint: Chest Pain <Nando Rader MD - Last Filed: 04/25/24 06:33> Stated complaint: chest pain <Nando Rader MD - Last Filed: 04/25/24 06:33> Time Seen by Provider: 04/25/24 06:30 <Nando Rader MD - Last Filed: 04/25/24 06:33> History of Present Illness HPI narrative: Patient is a 4-year-old gentleman presents emergency department with chief complaint of sharp left-sided chest pain patient reports pain started about 1 hour prior to arrival reports the pain is worse with inspiration patient does report that he had a prior history of influenza about 2 weeks ago patient does report that he has had episodes of this before in the past with many more frequently <Nando Rader MD - Last Filed: 04/25/24 06:33> Related Data Allergies/adverse reactions: Allergies Allergy/AdvReac Type Severity Reaction Status Date / Time poison mann extract Allergy Unknown Rash Verified 04/25/24 07:30 poison oak extract Allergy Unknown rash Verified 04/25/24 07:30 poison sumac extract Allergy Unknown rash Verified 04/25/24 07:30 <Nando Rader MD - Last Filed: 04/25/24 06:33> Review of Systems 2 Review of Systems: A 10 system review of systems was completed on the patient and is negative except for what is stated in the HPI. Nursing and ancillary documentation was reviewed. <Nando Rader MD - Last Filed: 04/25/24 06:33> [facility] Past Medical History Medical History: Medical History No significant medical problems <Nando Rader MD - Last Filed: 04/25/24 06:33> Surgical History Surgical History: Surgical History No history of previous surgery <Nando Rader MD - Last Filed: 04/25/24 06:33> Family History Family History: Family History Other Family history non-contributory <Nando Rader MD - Last Filed: 04/25/24 06:33> Social History Social History: Social History (Updated 04/25/24 @ 07:54 by Julianne Gutierrez MD) Social History: Surrogate medical decision maker: Sol Ca, mother. Code status: Full code. Smoking status: Never smoker Alcohol intake: never Substance use: never Substance use type: does not use Lack of Transportation: No Lack of Food: Never True Current Housing: I Have Housing Concerned About Future Housing: No Difficulty Paying Gas/Electric Bills: No Difficulty Paying for Meds: No Currently Unemployed: No Education: High School Diploma/GED Difficulty w/ Childcare or Family Care: No Additional living arrangements comments: Lives in [place]. 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 HEAD: Normocephalic, atraumatic. EYES: PERRLA and EOMI. ENT: Nares clear, no rhinorrhea or epistaxis. Mucous membranes moist. NECK: Supple. CHEST: Clear to auscultation. No respiratory distress. Mild tenderness to palpation left anterior chest wall HEART: Regular rate and rhythm. No murmur heard. Normal peripheral pulses. ABDOMEN: Soft, nontender, nondistended, normal active bowel sounds. EXTREMITIES: Normal range of motion. No edema. SKIN: Warm, dry, no rash. NEURO: No focal deficits. Alert and oriented x3. PSYCH: Normal mood and affect. <Nando Rader MD - Last Filed: 04/25/24 06:33> Course Course Emergency Course: Patient signed out to me pending interpretation of CT study. This was unremarkable for PE although does show some nonspecific bilateral hilar adenopathy. I assessed patient at bedside at approximately 7:45 a.m.. He states he was feeling fine but then started to have some sharp pains as he tried to sit up in this had been the issue previously. He does not have a primary care physician and has never seen a cath lab radiology technician although he does state that this has been intermittently occurring for several years now. Patient's only pain medication that had been ordered so far had been aspirin and this had not been given. Will give acetaminophen and ketorolac at this time given his pain has not yet been addressed. We also discussed the need for outpatient follow-up with a primary care physician and discuss that the nonspecific findings could be related to general inflammation or something more serious such as sarcoidosis and advised follow-up for this reason. He verifies understanding was in agreement. Given that he is intermittently been having chest pain for years but is otherwise low risk also recommend cardiology follow-up and we discussed this and that it may involve echo and/or event monitor, etc.. Otherwise stable for discharge. <Julianne Gutierrez MD - Last Filed: 04/25/24 20:18> Vital Signs Vital signs: Vital Signs Temperature 97.1 F L 04/25/24 02:27 Pulse Rate 73 04/25/24 02:27 Respiratory Rate 13 04/25/24 02:27 Blood Pressure 142/78 H 04/25/24 02:27 Pulse Oximetry 98 04/25/24 02:27 Oxygen Delivery Room Air 04/25/24 02:27 Temperature 97.6 F 04/25/24 08:14 Pulse Rate 66 04/25/24 08:14 Respiratory Rate 15 04/25/24 08:14 Blood Pressure 111/64 04/25/24 08:14 Pulse Oximetry 97 04/25/24 08:14 Oxygen Delivery Room Air 04/25/24 05:34 <Nando Rader MD - Last Filed: 04/25/24 06:33> Vital Signs Temperature 97.1 F L 04/25/24 02:27 Pulse Rate 73 04/25/24 02:27 Respiratory Rate 13 04/25/24 02:27 Blood Pressure 142/78 H 04/25/24 02:27 Pulse Oximetry 98 04/25/24 02:27 Oxygen Delivery Room Air 04/25/24 02:27 Temperature 97.6 F 04/25/24 08:14 Pulse Rate 66 04/25/24 08:14 Respiratory Rate 15 04/25/24 08:14 Blood Pressure 111/64 04/25/24 08:14 Pulse Oximetry 97 04/25/24 08:14 Oxygen Delivery Room Air 04/25/24 05:34 <Julianne Gutierrez MD - Last Filed: 04/25/24 20:18> Medical Decision Making MDM Narrative Medical decision making narrative: Differential diagnosis includes chest wall pain, musculoskeletal chest pain, pleurisy, ACS, pulmonary embolism Laboratory studies were obtained on the patient showed a white count of 8.6 electrolytes are within normal limits lipase was normal chest x-ray showed no focal infiltrate EKG showed no acute ischemic changes initial troponin was-3 hour troponin was negative A PE study will be obtained on the patient <Nando Rader MD - Last Filed: 04/25/24 06:33> Vital Signs Vital Signs: Vital Signs Temperature 97.1 F L 04/25/24 02:27 Pulse Rate 73 04/25/24 02:27 Respiratory Rate 13 04/25/24 02:27 Blood Pressure 142/78 H 04/25/24 02:27 Pulse Oximetry 98 04/25/24 02:27 Oxygen Delivery Room Air 04/25/24 02:27 Temperature 97.6 F 04/25/24 08:14 Pulse Rate 66 04/25/24 08:14 Respiratory Rate 15 04/25/24 08:14 Blood Pressure 111/64 04/25/24 08:14 Pulse Oximetry 97 04/25/24 08:14 Oxygen Delivery Room Air 04/25/24 05:34 <Nando Rader MD - Last Filed: 04/25/24 06:33> Vital Signs Temperature 97.1 F L 04/25/24 02:27 Pulse Rate 73 04/25/24 02:27 Respiratory Rate 13 04/25/24 02:27 Blood Pressure 142/78 H 04/25/24 02:27 Pulse Oximetry 98 04/25/24 02:27 Oxygen Delivery Room Air 04/25/24 02:27 Temperature 97.6 F 04/25/24 08:14 Pulse Rate 66 04/25/24 08:14 Respiratory Rate 15 04/25/24 08:14 Blood Pressure 111/64 04/25/24 08:14 Pulse Oximetry 97 04/25/24 08:14 Oxygen Delivery Room Air 04/25/24 05:34 <Julianne Gutierrez MD - Last Filed: 04/25/24 20:18> Lab Data Result diagrams: 04/25/24 02:22 04/25/24 02:22 <Nando Rader MD - Last Filed: 04/25/24 06:33> Labs: Lab Results 04/25/24 04/25/24 Range/Units 02:22 05:38 WBC 8.6 (4.5-10.0) K/mm3 RBC 4.66 (4.6-6.20) M/mm3 Hgb 15.6 (14.0-18.0) g/dL Hct 43.8 (42.0-52.0) % MCV 94.0 (80-100) fl MCH 33.5 (26-34) pg MCHC 35.6 (32-36) g/dl RDW 12.0 (11.5-14.5) % Plt Count 270 (150-375) k/mm3 MPV 9.9 (7.4-10.4) fl Immature Gran % (Auto) 0.5 (0-0.5) % Neut % (Auto) 51.2 (45.5-73.1) % Lymph % (Auto) 34.2 (18.3-44.2) % [place] % (Auto) 10.8 H (2.6-8.5) % Eos % (Auto) 2.6 (0-4.4) % Baso % (Auto) 0.7 (0.2-1.2) % Lymph # (Auto) 2.95 (0.9-3.2) K/mm3 [place] # (Auto) 0.9 H (0.1-0.6) K/mm3 Eos # (Auto) 0.2 (0-0.3) K/mm3 Baso # (Auto) 0.1 (0.0-0.1) K/mm3 Abs Immat Gran (auto) 0.04 H (0.00-0.031) K/mm3 Absolute Neuts (auto) 4.4 (1.3-6.7) K/mm3 Absolute Nucleated RBC 0.000 (0.0-0.012) K/mm3 Nucleated RBC % 0.0 (0.0-0.2) % PT 13.8 (11.1-14.7) Seconds INR 1.0 APTT 27.7 (22.3-36.8) Seconds Sodium 139 (137-145) mmol/L Potassium 3.9 (3.4-5.0) mmol/L Chloride 103 (98-107) mmol/L Carbon Dioxide 24 (22-30) mmol/L Anion Gap 12 (4-12) mmol/L BUN 19 (9-20) mg/dL Creatinine 0.95 (0.7-1.3) mg/dL Estim Creat Clear Calc 113 ml/min Estimated GFR > 60 (59 - ) Glucose 97 (65-110) mg/dL Calcium 9.4 (8.4-10.2) mg/dL Total Bilirubin 0.8 (0.2-1.3) mg/dL AST 59 (17-59) U/L ALT 115 H (6-50) U/L Alkaline Phosphatase 62 (38-126) U/L Troponin I < 0.012 < 0.012 (0.000-0.034) ng/mL Total Protein 8.0 (6.3-8.2) g/dL Albumin 4.7 (3.5-5.1) g/dL Lipase 70 (23-300) U/L <Nando Rader MD - Last Filed: 04/25/24 06:33> Lab Results 04/25/24 04/25/24 Range/Units 02:22 05:38 WBC 8.6 (4.5-10.0) K/mm3 RBC 4.66 (4.6-6.20) M/mm3 Hgb 15.6 (14.0-18.0) g/dL Hct 43.8 (42.0-52.0) % MCV 94.0 (80-100) fl MCH 33.5 (26-34) pg MCHC 35.6 (32-36) g/dl RDW 12.0 (11.5-14.5) % Plt Count 270 (150-375) k/mm3 MPV 9.9 (7.4-10.4) fl Immature Gran % (Auto) 0.5 (0-0.5) % Neut % (Auto) 51.2 (45.5-73.1) % Lymph % (Auto) 34.2 (18.3-44.2) % [place] % (Auto) 10.8 H (2.6-8.5) % Eos % (Auto) 2.6 (0-4.4) % Baso % (Auto) 0.7 (0.2-1.2) % Lymph # (Auto) 2.95 (0.9-3.2) K/mm3 [place] # (Auto) 0.9 H (0.1-0.6) K/mm3 Eos # (Auto) 0.2 (0-0.3) K/mm3 Baso # (Auto) 0.1 (0.0-0.1) K/mm3 Abs Immat Gran (auto) 0.04 H (0.00-0.031) K/mm3 Absolute Neuts (auto) 4.4 (1.3-6.7) K/mm3 Absolute Nucleated RBC 0.000 (0.0-0.012) K/mm3 Nucleated RBC % 0.0 (0.0-0.2) % PT 13.8 (11.1-14.7) Seconds INR 1.0 APTT 27.7 (22.3-36.8) Seconds Sodium 139 (137-145) mmol/L Potassium 3.9 (3.4-5.0) mmol/L Chloride 103 (98-107) mmol/L Carbon Dioxide 24 (22-30) mmol/L Anion Gap 12 (4-12) mmol/L BUN 19 (9-20) mg/dL Creatinine 0.95 (0.7-1.3) mg/dL Estim Creat Clear Calc 113 ml/min Estimated GFR > 60 (59 - ) Glucose 97 (65-110) mg/dL Calcium 9.4 (8.4-10.2) mg/dL Total Bilirubin 0.8 (0.2-1.3) mg/dL AST 59 (17-59) U/L ALT 115 H (6-50) U/L Alkaline Phosphatase 62 (38-126) U/L Troponin I < 0.012 < 0.012 (0.000-0.034) ng/mL Total Protein 8.0 (6.3-8.2) g/dL Albumin 4.7 (3.5-5.1) g/dL Lipase 70 (23-300) U/L <Julianne Gutierrez MD - Last Filed: 04/25/24 20:18> Discharge Plan Discharge Clinical Impression: Chest pain, Acute chest wall pain, Adenopathy, hilar <Nando Rader MD - Last Filed: 04/25/24 06:33> Patient Disposition: Home, Self-Care <Nando Rader MD - Last Filed: 04/25/24 06:33> Condition: Stable <Nando Rader MD - Last Filed: 04/25/24 06:33> Instructions: Antibiotic Form, Chest Pain (ED), Chest Wall Pain (ED) <Nando Rader MD - Last Filed: 04/25/24 06:33> Additional Instructions: As we discussed, the etiology of your symptoms remains unclear but your EKG and troponins (x2) were normal. There was the nonspecific finding of bilateral hilar adenopathy on your CT scan and this should be worked up further as it may represent something benign like general inflammation but could also represent a process like sarcoidosis, etc.. Because you do not have a primary care physician the name of the doctors listed below. Because you been having intermittent chest pain for years but are otherwise low risk however, also appropriate for outpatient cardiology follow-up and the name of a cath lab radiology technician is listed below. Acetaminophen/Tylenol (maximum 4000 mg per day) is safe to take with NSAIDs (ibuprofen/Motrin) for pain relief. Return to the emergency department any new or worsening symptoms. <Nando Rader MD - Last Filed: 04/25/24 06:33> Patient Language: Azeri <Nando Rader MD - Last Filed: 04/25/24 06:33> Prescriptions: New ibuprofen 600 mg tablet 600 mg PO TID PRN (Reason: pain) Qty: 30 0RF acetaminophen 500 mg capsule 1,000 mg PO Q6H PRN (Reason: pain) Qty: 30 0RF No Action amoxicillin 875 mg tablet 875 mg PO Q12H Qty: 14 0RF benzonatate 100 mg capsule 100 mg PO TID PRN (Reason: cough) Qty: 14 0RF albuterol sulfate 90 mcg/actuation HFA aerosol inhaler 1 puff inhalation QID Qty: 6.7 0RF amoxicillin-pot clavulanate 875-125 mg tablet 1 tablet PO Q12H 7 Days Qty: 14 0RF ciprofloxacin-dexamethasone 0.3-0.1 % drops,suspension 5 drp LEFT EAR TID Qty: 7.5 0RF Rx Instructions: Until follow up amoxicillin-pot clavulanate 875-125 mg tablet 1 tablet PO BID Qty: 20 2RF Rx Instructions: take 1 tablet b.i.d. <Nando Rader MD - Last Filed: 04/25/24 06:33> Follow-up/Referrals: Pierre Dumont DO [Physician] - (Family practice/primary care physician) Papa Burciaga MD [Physician] - (Cardiology) UNKNOWN,DOCTOR [Primary Care Provider] - <Nando Rader MD - Last Filed: 04/25/24 06:33> Stand Alone Forms: Work/School Release IP <Nando Rader MD - Last Filed: 04/25/24 06:33> Time of Disposition: 07:57 <Nando Rader MD - Last Filed: 04/25/24 06:33> 07:57 <Julianne Gutierrez MD - Last Filed: 04/25/24 20:18>
[2024-04-25 07:30] VITALS: BP 109/62; PULSE 74; RESP 12; O2SAT 97
[2024-04-25] MEDS: ACETAMINOPHEN 500 MG TABLET 1000 MG PO (07:58)
[2024-04-25] MEDS: KETOROLAC 15 MG/ML VIAL (*BKC) IV PUSH (07:59)
[2024-04-25 08:14] VITALS: BP 111/64; PULSE 66; RESP 15; TEMP 36.4; O2SAT 97
== END 2024-04-25 08:17 | disposition home or self-care (01) ==
PROVIDERS: Emergency Medicine; Emergency Provider Student in an Organized Health Care Education/Training Program
DX: R07.89 Other chest pain (principal); R59.9 Enlarged lymph nodes, unspecified; I45.10 Unspecified right bundle-branch block
CPT/HCPCS: 36415; 71046; 71275; 80053; 83690; 84484; 85025; 85610; 85730; 93005; 96374; 99284; A9270; J1885; Q9967